=== PATIENT | male | born 1965 | race Caucasian/White ===

== ENCOUNTER 2021-01-25 14:43 | Inpatient (IN) | payer OTHER ==
[~2021-01-25] VITALS: Ht 167.6 cm; Wt 99.3 kg
--- NOTE | ~2021-01-25 | CON ---
[address] [address] CONSULTATION Name: JOSE ROBERTO ABRAHAM Radha Room: [address] IN .R.#: [id number] Admission: 01/25/21 Attend Phys: Topher Weinstein MD Discharge: Date of : 67 Report #: [id number] THIS REPORT FOR: cc: FAM - No family physician/PCP FAM - No family physician/PCP Harjeet Malloy MD ~ DOC #: [id number] Harjeet Malloy MD DATE OF CONSULTATION: 01/25/2021 HISTORY OF PRESENT ILLNESS: This 55-year-old male patient who said he had an acute onset of numbness in the left arm about 1:30 today, arm felt numb that time. It may have been some weakness. There were no symptoms in the left side of the face or the left leg. Symptoms resolved spontaneously. He never had any symptoms like this before. 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 REVIEW OF SYSTEMS: A 14-point review of system was carried out. He describes some nonspecific problems with the neck and seizure, I am not totally convinced about that history. I need to find out more about it. He does smoke cigars. He drinks 1-2 alcoholic drinks every night. Otherwise, his 14-point review of system was carried out and is mostly unremarkable. PAST MEDICAL HISTORY: Positive for some cervical spine problem. FAMILY HISTORY: Positive for stroke, but in the later age. SOCIAL HISTORY: He smokes cigars and drink one or two alcoholic drinks every night. PHYSICAL EXAMINATION: He is alert, responsive, able to follow simple and complex commands. His speech, concentration, fund of knowledge and memory is at his baseline. His cranial nerve examination II-XII looks unremarkable to me. His strength, sensation, reflexes and tone looks unremarkable. There is no meningeal sign. There is no carotid bruit in this patient. He has no edema. He is pretty well-developed individual. Cardiac examination appear unremarkable. No respiratory difficulty was noticed. His blood pressure is 129/75, pulse ox is 99, pulse is 78, temperature is ____. LABORATORY DATA: White count is normal at 4.7. GFR is 58. He did have a CT scan of the head which was unremarkable. CT angio is pending. IMPRESSION: Pretty unusual symptoms, which can be TIA. 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 [place] [address] CONSULTATION Name: JOSE ROBERTO ABRAHAM Radha Room: [address]#: [id number] Admission: 01/25/21 Attend Phys: Topher Weinstein MD Discharge: Date of : 67 Report #: [id number] RECOMMENDATION: 1. We will await the CT angiogram of the head and neck. 2. I would like to get an MRI of the brain and C-spine because of all the problems he is having and CT angio is a normal and might get an EEG done in this patient. Presently, he is not on any blood thinner. We need to await these records and his lipid profile to see what kind of blood workup he needs. Thank you very much for this referral and if you have any questions, please feel free to contact me. Harjeet Malloy MD PK/DARRELL/PENELOPE By: 1558 10Harjeet Malloy MD /nt
[2021-01-25 14:44] VITALS: BP 153/73
[2021-01-25 15:25] LABS: ABSOLUTE BASOPHILS 0.1 thou/uL (0.0-0.2); ABSOLUTE EOSINOPHILS 0.2 thou/uL (0.0-0.7); ABSOLUTE LYMPHOCYTES 1.4 thou/uL (0.8-5.3); ABSOLUTE MONOCYTES 0.3 thou/uL (0.0-1.2); ABSOLUTE NEUTROPHILS 2.8 thou/uL (1.6-8.1); BASOPHILS 1.2 %; EOSINOPHILS 3.3 %; HEMATOCRIT 45.7 % (42.0-52.0); HEMOGLOBIN 16.1 gm/dL (14.0-18.0); LYMPHOCYTES 30.5 %; MCH 33.6 pg (26.0-34.0); MCHC 35.3 g/dL (28.0-37.0); MCV 95.1 fL (80.0-100.0); MONOCYTES 6.8 %; MPV 7.8 fl. (7.2-11.1); NUCLEATED RBCS 0 /100WBC; PLATELET COUNT* 205 thou/uL (150-400); POLYS 58.2 %; RDW-CV 13.2 % (10.5-14.5); WBC 4.7 thou/uL (4.0-11.0)
[2021-01-25 15:31] LABS: PROTIME 10.5 Seconds (9.20-11.50)
[2021-01-25 15:33] LABS: CALCIUM 9.2 mg/dL (8.5-10.1); CREATININE 1.3 mg/dL (0.6-1.3); POTASSIUM 3.9 mmol/L (3.5-5.1)
--- NOTE | 2021-01-25 15:33 | EKG ---
[place] [address] ELECTROCARDIOGRAM REPORT Name: JOSE ROBERTO ABRAHAM Radha Room: [facility]#: [id number] Admission: 01/25/21 Attend Phys: Discharge: Date of : 67 Date of Service: 01/25/21 1443 Report #: [id number] THIS REPORT FOR: //name// [facility] ED Test Date: 2021-01-25 Test Time: 14:43:36 Pat Name: JOSE ROBERTO ABRAHAM Department: Room: Gender: Flexible Nanny: : 1965 Requested By: Surendra Gonzalez Order Number: [id number] MD: Riki Paredes Measurements Intervals [place] Rate: 88 P: 36 SC: 138 QRS: 39 QRSD: 106 T: 14 QT: 377 QTc: 457 Interpretive Statements Sinus rhythm No previous ECG available for comparison Electronically Signed On 01-25-2021 15:33:49 CDT by Riki Paredes [email or web address] <ELECTRONICALLY SIGNED> By: Riki Paredes MD, [facility] 01/25/21 1533 1443 1443 Riki Paredes MD, FACC /EPI
[2021-01-25 15:38] LABS: ALBUMIN 4.5 g/dL (3.4-5.0); TOTAL BILIRUBIN 0.6 mg/dL (<0.1-1.0)
--- NOTE | 2021-01-25 17:04 | NUR ---
CODE STROKE ACTIVATED AT 1453, SEE PAPER DOCUMENTATION FOR FURTHER INFORMATION.
--- NOTE | 2021-01-25 17:33 | NUR ---
PT TOLERATED REGULAR DINNER TRAY WITHOUT DIFFICULTY.
[2021-01-25 18:13] VITALS: BP 124/71
[2021-01-25 20:20] VITALS: BP 115/65
[2021-01-25 20:30] VITALS: BP 136/71
--- NOTE | 2021-01-25 20:30 | NUR ---
RECEIVED REPORT FROM ER, PT TO ROOM. AMBULATED WITH STEADY GAIT FROM CART TO BED. PT VERY PLEASANT. NIH COMPLETED WITH 0 SCORE. BEDRAILS PADDED DUE TO PAST HX OF SEIZURES. TELEMETRY APPLIED SHOWING SR. IV FLUIDS INFUSING. SEE ADMISSION ASSESSMENT AND HX. WILL CONT TO MONITOR AND ASSIST NEEDED.
[2021-01-26 00:37] VITALS: BP 118/55
[2021-01-26 03:06] LABS: GLYCOHEMOGLOBIN (HGB A1C) 5.2 % (4.8-5.6)
[2021-01-26 04:41] VITALS: BP 105/70
[2021-01-26 04:45] LABS: ABSOLUTE EOSINOPHILS 0.2 thou/uL (0.0-0.7); ABSOLUTE LYMPHOCYTES 1.9 thou/uL (0.8-5.3); ABSOLUTE MONOCYTES 0.4 thou/uL (0.0-1.2); ABSOLUTE NEUTROPHILS 2.7 thou/uL (1.6-8.1); BASOPHILS 0.9 %; EOSINOPHILS 4.3 %; HEMATOCRIT 42.8 % (42.0-52.0); HEMOGLOBIN 14.8 gm/dL (14.0-18.0); MCHC 34.5 g/dL (28.0-37.0); MCV 95.7 fL (80.0-100.0); MPV 8.1 fl. (7.2-11.1); NUCLEATED RBCS 0 /100WBC; PLATELET COUNT* 177 thou/uL (150-400); POLYS 50.8 %; RBC 4.47 mil/uL (4.50-6.00); RDW-CV 13.7 % (10.5-14.5); WBC 5.4 thou/uL (4.0-11.0)
[2021-01-26 04:53] LABS: CALCIUM 8.7 mg/dL (8.5-10.1); CREATININE 1.3 mg/dL (0.6-1.3); POTASSIUM 4.3 mmol/L (3.5-5.1)
[2021-01-26 05:00] LABS: CHOLESTEROL 141 mg/dL (<200); HDL CHOLESTEROL 47 mg/dL (>40); LDL CHOLESTEROL 58 mg/dL (<100); TRIGLYCERIDE 181 mg/dL (<150); VLDL 36 mg/dL (<40)
[2021-01-26 05:05] LABS: SERUM ASSESSMENT Clear
--- NOTE | 2021-01-26 05:30 | NUR ---
SLEPT WELL TONIGHT WITHOUT COMPLAINTS. WORE OWN CPAP. NO CHANGE IN ASSESSMENT. GAIT STEADY TO AND FROM BR. TELEMETRY SR/SB WHEN SLEEPING. DENIES LT ARM NUMBNESS. HS GOALS OF REST AND SAFETY ACHIEVED. HOURLY ROUNDING OBSERVED.
[2021-01-26 07:57] VITALS: BP 102/57
[2021-01-26 12:06] VITALS: BP 125/74
--- NOTE | 2021-01-26 14:03 | NUR ---
CM S/W PT AND C/G, "SUPERINTENDENT TRACK", LUAN, WHO WAS PRESENT AT BESIDE. LUAN HELPS WITH ADLS, CHORES AND ERRANDS. PT LIVES HOME ALONE. LUAN STAY THERE SOMETIMES. PT USES A WALKER FOR GAIT. PT IS SEMI-ACTIVE, WILL "SOMETIMES WASHED THE DISHES." PT DENIES HX WITH HH OR SNF. ARU FOLLOWING, BEDSIDE NURSE, RAMU, TO PLACE ARU ORDER.
--- NOTE | 2021-01-26 14:05 | NUR ---
CM S/W PT AND , WHO WAS AT BEDSIDE. PT LIVES HOME WITH . INDEPENDENT W/CARES. HAS 0 DMES. 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 PT DENIES HX WITH HH AND SNF. PT STATED, "MY FAMILY JUST REMINDED ME THAT THIS IS MY FIRST BEING IN A HOSPITAL...OVERNIGHT." PT BESIDE RN, PLACED ORDER TO ARU CONSULT, RAMU.
--- NOTE | 2021-01-26 15:22 | 2DMMODE ---
[place] [address] 2 D/M-MODE ECHOCARDIOGRAM Name: CHUCHO ABRAHAM Room: [address] IN .R.#: [id number] Admission: 01/25/21 Attend Phys: Topher Weinstein, Discharge: Date of : 67 Date of Service: 01/26/21 1522 Report #: [id number] THIS REPORT FOR: cc: FAM - No family physician/PCP FAM - No family physician/PCP Chucho Eduardo MD [facility] ~ APPROVED REPORT Study performed: 01/26/2021 13:41:37 EXAM: Comprehensive 2D, Doppler, and color-flow Echocardiogram Patient Location: Bedside BSA: 2.00 HR: 58 bpm BP: 102/57 mmHg Other Information Study Quality: Good Indications CVA/TIA Echo Enhancing Agent Indication: Rule out Shunt Agent(s) / Amount(s) Used: Agitated Saline 6 cc 2D Dimensions IVSd: 12.54 (7-11mm) LVOT Diam: 21.01 (18-24mm) LVDd: 38.47 mm PWd: 11.88 (7-11mm) Ascending Ao: 27.22 (22-36mm) LVDs: 30.15 (25-40mm) Aortic Root: 31.37 mm Volumes Left Atrial Volume (Systole) LA ESV Index: 21.30 mL/m2 Aortic Valve AoV Peak Luke.: 1.26 m/s AO Peak Gr.: 6.34 mmHg LVOT Max P.71 mmHg AO Mean Gr.: 3.64 mmHg LVOT Mean P.24 mmHg LVOT Max V: 1.09 m/s AO V2 VTI: 24.13 cm LVOT Mean V: 0.68 m/[place] [address] 2 D/M-MODE ECHOCARDIOGRAM Name: CHUCHO ABRAHAM Room: [address] IN .R.#: [id number] Admission: 01/25/21 Attend Phys: Topher Weinstein, Discharge: Date of : 67 Date of Service: 01/26/21 1522 Report #: [id number] RAMON (VTI): 3.00 cm2 LVOT V1 VTI: 20.88 cm Mitral Valve E/A Ratio: 1.60 MV Decel. Time: 171.97 ms MV E Max Luke.: 0.82 m/s MV PHT: 49.87 ms MVA (PHT): 4.41 cm2 TDI E/Lateral E': 5.47 E/Medial E': 6.83 Medial E' Luke.: 0.12 m/s Lateral E' Luke.: 0.15 m/s Pulmonary Valve PV Peak Luke.: 1.42 m/s PV Peak Gr.: 8.07 mmHg Tricuspid Valve RAP Estimate: 20.00 mmHg TR Peak Gr.: 19.36 mmHg RVSP: 39.36 mmHg PA Pressure: 39.36 mmHg Left Ventricle The left ventricle is normal size. There is normal LV segmental wall motion. There is normal left ventricular wall thickness. Left ventricular systolic function is normal. LVEF is 60-65%. Transmitral Doppler flow pattern suggests impaired LV relaxation. Right Ventricle The right ventricle is normal size. The right ventricular systolic function is normal. Atria The left atrium size is normal. Injection of bubbles documented no interatrial shunt. The right atrium size is normal. Aortic Valve The aortic valve is normal in structure. No aortic regurgitation is present. There is no aortic valvular stenosis. Mitral Valve The mitral valve is normal in structure. There is no mitral valve regurgitation noted. No evidence of mitral valve stenosis. Tricuspid Valve The tricuspid valve is normal in structure[place] [address] 2 D/M-MODE ECHOCARDIOGRAM Name: CHUCHO ABRAHAM Room: [address] IN [facility]#: [id number] Admission: 01/25/21 Attend Phys: Topher Weinstein, Discharge: Date of : 67 Date of Service: 01/26/21 1522 Report #: [id number] regurgitation. Pulmonic Valve The pulmonary valve is normal in structure. There is no pulmonic valvular regurgitation. Great Vessels The aortic root is normal in size. The inferior vena cava is not well visualized. Pericardium There is no pericardial effusion. <Conclusion> The left ventricle is normal size. There is normal left ventricular wall thickness. Left ventricular systolic function is normal. LVEF is 60-65%. Transmitral Doppler flow pattern suggests impaired LV relaxation. Injection of bubbles documented no interatrial shunt. Trace tricuspid regurgitation. <ELECTRONICALLY SIGNED> By: Chucho Eduardo MD, FACC 01/26/21 1522 [id number] Chucho Eduardo MD, FACC /INF
[2021-01-26] MEDS ORDERED: ASA81BEC PO (16:09)
[2021-01-26 16:23] VITALS: BP 125/74
[2021-01-26 16:57] VITALS: BP 117/63
--- NOTE | 2021-01-26 17:15 | NUR ---
Reviewed discharge teaching with patient; verbalized understanding. 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 Discharged from unit and arrived safely to 's car.
== END 2021-01-26 17:15 | disposition home or self-care (01) | DRG 93 ==
LOC: M.ERS 14:43 → M.2W 15:35 → M.TBA-ER 15:35 → M.2W 20:51
PROVIDERS: Emergency Medicine Emergency Medical Services; ADMIT Internal Medicine; ATTEND Internal Medicine
DX: R20.2 Paresthesia of skin (principal); F17.210 Nicotine dependence, cigarettes, uncomplicated; F41.9 Anxiety disorder, unspecified; Z20.822 Contact with and (suspected) exposure to COVID-19; Z72.89 Other problems related to lifestyle